=== PATIENT | female | born 1935 | race Caucasian/White ===

== ENCOUNTER 2017-09-16 20:38 | Emergency (ER) | payer MEDICARE ==
[2017-09-16] MEDS ORDERED: SODIUM CHLORIDE 0.9% 1,000 ML IV ONE (21:14)
[2017-09-16] MEDS ORDERED: MORPHINE SULFATE 2 MG/ML SYRINGE IVP PRN (21:16)
[2017-09-16 21:48] LABS: Basophils # (A) 0.1 k/uL (0-0.2); Basophils % (A) 1 %; Eosinophils # (A) 0.2 k/uL (0-0.7); Eosinophils % (A) 2 %; HCT 35.9 % (34.0-46.0); HGB 11.8 gm/dL (11.4-16.0); Lymphocytes # (A) 1.6 k/uL (1.0-4.8); Lymphocytes % (A) 13 %; MCH 28.8 pg (25.0-35.0); MCHC 32.8 g/dL (31.0-37.0); MCV 87.9 fL (80.0-100.0); Mean Platelet Volume 6.9; Monocytes # (A) 0.6 k/uL (0-1.0); Monocytes % (A) 5 %; Neutrophils # (A) 9.5 k/uL (1.3-7.7); Neutrophils % (A) 79 %; Platelet Count 320 k/uL (150-450); RBC 4.08 m/uL (3.80-5.40); RDW 14.5 % (11.5-15.5)
[2017-09-16 21:57] LABS: Albumin 3.8 g/dL (3.5-5.0); Calcium 9.1 mg/dL (8.4-10.2); Potassium 4.3 mmol/L (3.5-5.1); Total Bilirubin 0.9 mg/dL (0.2-1.3); Total Protein 6.2 g/dL (6.3-8.2)
[2017-09-16 22:03] LABS: Prothrombin Time 9.6 sec (9.0-12.0)
[2017-09-16 22:22] LABS: Partial Thromboplastin Time 21.2 sec (22.0-30.0)
--- NOTE | 2017-09-16 22:38 | CT ---
EXAMINATION TYPE: CT brain marlene salmon DATE OF EXAM: 09/16/2017 COMPARISON: HISTORY: fell this evening/pain posterior neck CT DLP: 1489.20 mGycm Automated exposure control for dose reduction was used. TECHNIQUE: CT scan of the head and cervical spine are performed without contrast. FINDINGS: There is cerebral cortical atrophy. There is no mass effect nor midline shift. There is n o sign of intracranial hemorrhage. The cervical vertebra have normal alignment. There is facet arthropathy in the mid and lower cervical spine. There is no significant disc space narrowing. Skull base is intact. There is no evidence for fracture. IMPRESSION: Mild cerebral atrophy. No acute intracranial abnormality. Mild spondylotic changes in the cervical spine. No fracture.
--- NOTE | 2017-09-16 22:39 | XR ---
EXAMINATION TYPE: XR pelvis AP view DATE OF EXAM: 09/16/2017 COMPARISON: NONE HISTORY: Pain TECHNIQUE: Single view FINDINGS: The pelvic ring is intact. Proximal femurs and hip joints are intact. Sacroiliac joints halie ear normal. IMPRESSION: Negative pelvis x-ray exam.
--- NOTE | 2017-09-16 22:40 | XR ---
EXAMINATION TYPE: XR Hip Complete RT DATE OF EXAM: 09/16/2017 COMPARISON: NONE HISTORY: Right hip pain TECHNIQUE: 2 views FINDINGS: I see no fracture nor dislocation. Proximal femur is intact. IMPRESSION: Negative right hip exam.
--- NOTE | 2017-09-16 22:41 | XR ---
EXAMINATION TYPE: XR knee limited RT DATE OF EXAM: 09/16/2017 COMPARISON: NONE HISTORY: Knee pain after falling TECHNIQUE: 2 views FINDINGS: There is comminuted supracondylar fracture of the distal femur. Fracture lines extend to th e knee prosthesis. There is 100% anterior displacement of the distal major fragment on the lateral vi ew. There is some overriding. IMPRESSION: Comminuted displaced supracondylar fracture of the right femur.
--- NOTE | 2017-09-16 22:47 | XR ---
EXAMINATION TYPE: XR ankle limited RT DATE OF EXAM: 09/16/2017 COMPARISON: NONE HISTORY: Ankle pain TECHNIQUE: 2 views FINDINGS: There is a small plantar calcaneal spur. I see no fracture nor dislocation. Ankle mortise i s anatomic. IMPRESSION: Mild calcaneal spurring. No fracture.
--- NOTE | 2017-09-16 22:58 | XR ---
EXAMINATION TYPE: XR chest 1V portable DATE OF EXAM: 09/16/2017 COMPARISON: EXAMINATION TYPE: XR chest 1V portable DATE OF EXAM: 09/16/2017 COMPARISON: NONE HISTORY: Chest pain TECHNIQUE: Single view FINDINGS: Supine view shows no heart failure nor confluent pneumonic infiltrate. Thoracic aorta is at heromatous. There is no pleural effusion. There is no pneumothorax. Bony thorax appears intact. IMPRESSION: No active cardiopulmonary disease.
[2017-09-16] MEDS ORDERED: fentaNYL (PF) 50 MCG/ML 2 ML AMP IVP STA (23:35)
--- NOTE | 2017-09-16 23:50 | ED ---
General Adult HPI - General Chief complaint: Fall Stated complaint: R leg fracture Source: patient Mode of arrival: EMS Limitations: no limitations - History of Present Illness Initial comments: Dictation was produced using [employer] dictation software. please excuse any grammatical, word or spelling errors. Chief Complaint: 82-year-old female with past medical history diabetes , hypertension, thyroid disorder presents with right lower extremity pain. History of Present Illness: She is a 82-year-old female past medical history of diabetes, hypertension, thyroid disorder presents with right knee pain. Patient states that 1 hour prior to arrival she was taking a step down when she slipped causing her to fall backwards and obliquely. Patient states she hit the back of her head. Denies any loss of consciousness. Patient states that she has pain mostly to her right knee area. Patient history of total knee replacement performed in [place] about 15 years ago. She is in town visiting friends. The ROS documented in this emergency department record has been reviewed and confirmed by me. Those systems with pertinent positive or negative responses have been documented in the HPI. All other systems are other negative and/or noncontributory. - Related Data Home Medications Medication Instructions Recorded Confirmed Aspirin [Adult Low Dose Aspirin EC] 81 mg PO DAILY 09/16/17 09/16/17 Cholecalciferol [Vitamin D3] 1,000 unit PO DAILY 09/16/17 09/16/17 Fluticasone/Salmeterol [Advair 1 inhalation PO BID 09/16/17 09/16/17 500-50 Diskus] Glimepiride [Amaryl] 4 mg PO AC-BRKFST 09/16/17 09/16/17 Levothyroxine Sodium [Synthroid] 112 mcg PO DAILY 09/16/17 09/16/17 Losartan Potassium [Cozaar] 50 mg PO DAILY 09/16/17 09/16/17 Montelukast [Singulair] 10 mg PO DAILY 09/16/17 09/16/17 Allergies Allergy/AdvReac Type Severity Reaction Status Date / Time No Known Allergies Allergy Verified 09/16/17 20:46 Review of Systems ROS Statement: Those systems with pertinent positive or pertinent negative responses have been documented in the HPI. ROS Other: All systems not noted in ROS Statement are negative. Past Medical History Past Medical History: Diabetes Mellitus, Hypertension, Thyroid Disorder History of Any Multi-Drug Resistant Organisms: None Reported Past Surgical History: Appendectomy, Cholecystectomy, Hysterectomy, Joint Replacement, Orthopedic Surgery Past Psychological History: No Psychological Hx Reported Smoking Status: Never smoker Past Alcohol Use History: None Reported Past Drug Use History: None Reported General Exam - General Exam Comments Initial Comments: PHYSICAL EXAM: General Impression: Alert and oriented x3, HEENT: Normocephalic atraumatic, extra-ocular movements intact, pupils equal and reactive to light bilaterally, mucous membranes moist. Cardiovascular: Heart regular rate and rhythm, S1&S2 audible, no murmurs, rubs or gallops Chest: Lungs clear to auscultation bilaterally, no rhonchi, no wheeze, no rales Abdomen: Bowel sounds present, abdomen soft, non-tender, non-distended, no organomegaly Musculoskeletal: Pulses present and equal in all extremities, no peripheral edema, shortened and externally rotated right lower extremity. Gross deformity of the suprapatellar area. Neurologically intact to both extremities equally. Motor: Power 5/5 bilaterally, no focal deficits noted Neurological: CN II-XII grossly intact, no focal motor or sensory deficits noted Skin: Intact with no visualized rashes Psych: Normal affect and mood Limitations: no limitations Course Vital Signs 09/16/17 09/16/17 09/16/17 20:41 21:39 22:44 Temperature 98.7 F Pulse Rate 50 L 55 L 58 L Respiratory 20 20 20 Rate Blood Pressure 207/84 198/79 178/78 O2 Sat by Pulse 94 L 96 95 Oximetry Medical Decision Making - Medical Decision Making ED course: She is a 82-year-old female presents after ground-level fall. Physical examination concerning for gross deformity of the right lower extremity. As upon arrival shows heart rate of 50, blood pressure 217/84 likely secondary to pain. Rest of vital signs unremarkable. Laboratory evaluation obtained. CBC is unremarkable except for some mild leukocytosis. INR is 1.0. Elevated renal markers with a creatinine of 1.3, BUNs 29, glucose of 180. Pelvis x-ray was obtained showing no acute processes. Hip x-ray obtained showing no acute processes. Right ankle x-rays obtained showing no acute processes. Chest x- ray shows no acute traumatic issues. Knee x-ray shows comminuted displaced supracondylar fracture of the right femur extending into the periprosthetic area. Computed tomography scan of the head and C-spine obtained showing no acute processes. Patient given multiple doses of IV analgesics. Discussed patient case with neck from orthopedic surgery recommends patient be transferred to trauma facility. Discussed patient case with Dr. Zamarripa from [facility] who is willing to accept the admission. Patient placed in a splint prior to transfer. - Lab Data Result diagrams: 09/16/17 21:30 09/16/17 21:30 Lab Results 09/16/17 09/16/17 09/16/17 Range/Units 21:30 21:30 21:30 WBC 12.0 H (3.8-10.6) k/uL RBC 4.08 (3.80-5.40) m/uL Hgb 11.8 (11.4-16.0) gm/dL Hct 35.9 (34.0-46.0) % MCV 87.9 (80.0-100.0) fL MCH 28.8 (25.0-35.0) pg MCHC 32.8 (31.0-37.0) g/dL RDW 14.5 (11.5-15.5) % Plt Count 320 (150-450) k/uL Neutrophils % 79 % Lymphocytes % 13 % Monocytes % 5 % Eosinophils % 2 % Basophils % 1 % Neutrophils # 9.5 H (1.3-7.7) k/uL Lymphocytes # 1.6 (1.0-4.8) k/uL Monocytes # 0.6 (0-1.0) k/uL Eosinophils # 0.2 (0-0.7) k/uL Basophils # 0.1 (0-0.2) k/uL PT 9.6 (9.0-12.0) sec INR 1.0 (<1.2) APTT 21.2 L (22.0-30.0) sec Sodium 138 (137-145) mmol/L Potassium 4.3 (3.5-5.1) mmol/L Chloride 106 (98-107) mmol/L Carbon Dioxide 24 (22-30) mmol/L Anion Gap 8 mmol/L BUN 29 H (7-17) mg/dL Creatinine 1.30 H (0.52-1.04) mg/dL Est GFR (CKD-EPI)AfAm 45 (>60 ml/min/1.73 sqM) Est GFR (CKD-EPI)NonAf 39 (>60 ml/min/1.73 sqM) Glucose 180 H (74-99) mg/dL Calcium 9.1 (8.4-10.2) mg/dL Total Bilirubin 0.9 (0.2-1.3) mg/dL AST 19 (14-36) U/L ALT 35 (9-52) U/L Alkaline Phosphatase 72 (38-126) U/L Total Protein 6.2 L (6.3-8.2) g/dL Albumin 3.8 (3.5-5.0) g/dL Disposition Clinical Impression: Fall, Femur fracture, right Disposition: OTHER INSTITUTION NOT DEFINED Condition: Fair Is patient prescribed a controlled substance at d/c from ED?: No Referrals: Nonstaff,Physician [Primary Care Provider] - 1-2 days Time of Disposition: 23:48 - Out of Hospital Transfer - Req. Specs Out of Hospital Transfer - Requested Specifics: Other Emergency Center (need trauma orthopedic surgery)
[2017-09-17 00:28] VITALS: BP 163/65; PULSE 87; RESP 18; TEMP 98.5
== END 2017-09-17 01:09 | disposition other institution (70) ==
LOC: EC 20:38
DX: S72.451A Displaced supracondylar fracture without intracondylar extension of lower end of right femur, initial encounter for closed fracture (principal); D72.829 Elevated white blood cell count, unspecified; R94.4 Abnormal results of kidney function studies; E11.9 Type 2 diabetes mellitus without complications; I10 Essential (primary) hypertension; E07.9 Disorder of thyroid, unspecified; Z79.82 Long term (current) use of aspirin; Z79.51 Long term (current) use of inhaled steroids; Z79.84 Long term (current) use of oral hypoglycemic drugs; Z79.899 Other long term (current) drug therapy; W10.9XXA Fall (on) (from) unspecified stairs and steps, initial encounter
CPT/HCPCS: 99285 ×2; 96374 ×2; 96375 ×2; 96361 ×5; 36415; 80053; 85025; 85610; 85730; 72170; 73502; 73560; 73600; 71045; 72125; 70450; J3010; J2270

== ENCOUNTER 2017-10-21 21:05 | Inpatient (IN) | payer MEDICARE ==
--- NOTE | 2017-10-21 21:53 | ED ---
General Adult HPI - General Stated complaint: abnormal labs Time Seen by Provider: 10/21/17 21:22 - History of Present Illness Initial comments: Rocío is an 82-year-old female who presents to the ED via EMS from a residential facility for evaluation of hypokalemia identified on outpatient labs. She reports that she was told her potassium was low, she was given a by mouth potassium supplement with dinner and subsequently transferred to the ER for further evaluation and management. Patient reports that she has no complaints, had routine blood work and was advised of these findings. Patient reports that she has been eating a normal diet of low car meals are provided to her at the retirement. She states that she did have some sweet potatoes with dinner last night but she never eats bananas because it causes her GI upset. She is not on any potassium supplementation or any diuretics. Patient also states that she's been experiencing some bilateral lower extremity edema, she is status post right femur fracture but this is been healing well and she has been participating in physical therapy and has been able to ambulate recently. Patient states that the edema in her legs is limiting her ability to participate in PT and she has been told by her caregivers at the rehab facility that she will be having an outpatient venous Doppler in the near future. Patient states that until 2 days ago she was receiving blood thinner shots in her abdomen, she is uncertain if it was heparin or Lovenox. She states that 2 days ago they changed from shots to aspirin daily. Patient has no history of DVT or PE in the past. She is not on any other anticoagulant or antiplatelet medications. She has no history of congestive heart failure to her knowledge. Review of her medical record reveals no diagnosis of congestive heart failure and no pharmacologic treatment for congestive heart failure. - Related Data Home Medications Medication Instructions Recorded Confirmed Aspirin [Adult Low Dose Aspirin EC] 81 mg PO DAILY 09/16/17 09/16/17 Cholecalciferol [Vitamin D3] 1,000 unit PO DAILY 09/16/17 09/16/17 Fluticasone/Salmeterol [Advair 1 inhalation PO BID 09/16/17 09/16/17 500-50 Diskus] Glimepiride [Amaryl] 4 mg PO AC-BRKFST 09/16/17 09/16/17 Levothyroxine Sodium [Synthroid] 112 mcg PO DAILY 09/16/17 09/16/17 Losartan Potassium [Cozaar] 50 mg PO DAILY 09/16/17 09/16/17 Montelukast [Singulair] 10 mg PO DAILY 09/16/17 09/16/17 Allergies Allergy/AdvReac Type Severity Reaction Status Date / Time No Known Allergies Allergy Verified 10/21/17 21:55 Review of Systems ROS Statement: Those systems with pertinent positive or pertinent negative responses have been documented in the HPI. ROS Other: All systems not noted in ROS Statement are negative. Past Medical History Past Medical History: Diabetes Mellitus, Hypertension, Thyroid Disorder History of Any Multi-Drug Resistant Organisms: None Reported Past Surgical History: Appendectomy, Cholecystectomy, Hysterectomy, Joint Replacement, Orthopedic Surgery Past Psychological History: No Psychological Hx Reported Smoking Status: Never smoker Past Alcohol Use History: None Reported Past Drug Use History: None Reported General Exam Limitations: no limitations General appearance: alert, in no apparent distress Head exam: Present: atraumatic, normocephalic Eye exam: Present: normal appearance, PERRL ENT exam: Present: normal exam, normal oropharynx Neck exam: Present: normal inspection Respiratory exam: Present: normal lung sounds bilaterally. Absent: respiratory distress Cardiovascular Exam: Present: regular rate, normal rhythm GI/Abdominal exam: Present: soft. Absent: distended Rectal exam: Present: deferred Extremities exam: Present: normal capillary refill, pedal edema Neurological exam: Present: alert, oriented X3 Psychiatric exam: Present: normal affect, normal mood Skin exam: Present: warm, dry, intact Course Vital Signs 10/21/17 10/21/17 21:20 23:01 Temperature 98.4 F 99.1 F Pulse Rate 74 76 Respiratory 18 16 Rate Blood Pressure 150/66 165/67 O2 Sat by Pulse 95 92 L Oximetry EKG Findings - EKG Comments: EKG Findings:: EKG obtained at 2158, rate is 78, rhythm is sinus, there is a normal axis, normal intervals, TN is 162, QRS is 156, QTC is 474, there is a right bundle-branch block. There are no previous EKGs for comparison. Medical Decision Making - Medical Decision Making The patient was seen and evaluated, history was obtained from patient and review of medical record No outpatient lab report was provided however handwritten note indicated that the patient's outpatient potassium and was 2.0 Patient was given PO potassium supplementation prior to transfer to ER Repeat labs and EKG were ordered In addition the patient has been minimally mobile since fracturing her femur and has developed bilateral lower extremity edema, venous Dopplers were ordered to evaluate edema EKG was evaluated, right bundle branch block, patient is uncertain if she has a history of this. There are no previous for comparison. Labs resulted with critical abnormalities including magnesium of 0.7 and potassium of 2.2. By mouth and IV replacements were ordered At this time the patient will acquire multiple hours of IV magnesium and potassium supplementation as well as lab repeats. The patient warrants admission to the hospital for monitoring and normalization of her labs. Patient is agreeable to this. Admission orders were placed. - Lab Data Result diagrams: 10/21/17 21:54 10/21/17 21:54 Lab Results 10/21/17 10/21/17 Range/Units 21:54 21:54 WBC 9.6 (3.8-10.6) k/uL RBC 3.50 L (3.80-5.40) m/uL Hgb 9.9 L D (11.4-16.0) gm/dL Hct 31.4 L (34.0-46.0) % MCV 89.6 (80.0-100.0) fL MCH 28.3 (25.0-35.0) pg MCHC 31.6 (31.0-37.0) g/dL RDW 15.3 (11.5-15.5) % Plt Count 436 (150-450) k/uL Neutrophils % 75 % Lymphocytes % 16 % Monocytes % 4 % Eosinophils % 4 % Basophils % 0 % Neutrophils # 7.2 (1.3-7.7) k/uL Lymphocytes # 1.5 (1.0-4.8) k/uL Monocytes # 0.4 (0-1.0) k/uL Eosinophils # 0.4 (0-0.7) k/uL Basophils # 0.0 (0-0.2) k/uL Hypochromasia Slight Sodium 140 (137-145) mmol/L Potassium 2.2 L* (3.5-5.1) mmol/L Chloride 99 (98-107) mmol/L Carbon Dioxide 35 H (22-30) mmol/L Anion Gap 6 mmol/L BUN 13 (7-17) mg/dL Creatinine 1.16 H (0.52-1.04) mg/dL Est GFR (CKD-EPI)AfAm 52 (>60 ml/min/1.73 sqM) Est GFR (CKD-EPI)NonAf 45 (>60 ml/min/1.73 sqM) Glucose 129 H (74-99) mg/dL Calcium 7.1 L (8.4-10.2) mg/dL Magnesium 0.7 L* (1.6-2.3) mg/dL Disposition Clinical Impression: Hypokalemia, Hypomagnesemia Disposition: ADMITTED IP TO THIS HOSP Decision Time: 22:42
[2017-10-21 22:08] LABS: Basophils % (A) 0 %; Eosinophils # (A) 0.4 k/uL (0-0.7); Eosinophils % (A) 4 %; HCT 31.4 % (34.0-46.0); Hypochromasia Slight; Lymphocytes # (A) 1.5 k/uL (1.0-4.8); Lymphocytes % (A) 16 %; MCH 28.3 pg (25.0-35.0); MCHC 31.6 g/dL (31.0-37.0); MCV 89.6 fL (80.0-100.0); Mean Platelet Volume 6.9; Monocytes # (A) 0.4 k/uL (0-1.0); Monocytes % (A) 4 %; Neutrophils # (A) 7.2 k/uL (1.3-7.7); Neutrophils % (A) 75 %; Platelet Count 436 k/uL (150-450); RDW 15.3 % (11.5-15.5); WBC 9.6 k/uL (3.8-10.6)
[2017-10-21 22:13] LABS: HGB 9.9 gm/dL (11.4-16.0)
[2017-10-21 22:17] LABS: Calcium 7.1 mg/dL (8.4-10.2)
[2017-10-21 22:21] LABS: Magnesium 0.7 mg/dL (1.6-2.3); Potassium 2.2 mmol/L (3.5-5.1)
[2017-10-21] MEDS ORDERED: POTASSIUM BICARBONATE/CIT AC 20 MEQ TABLET.EFF PO ONE (22:29)
[2017-10-21] MEDS: MAGNESIUM SULFATE-D5W PMX 1 GM in DEXTROSE/WATER 1 100ML.BAG IVPB SCH (22:32)
[2017-10-21] MEDS ORDERED: NALOXONE 0.4 MG/ML 1 ML VIAL IV PRN (22:42)
--- NOTE | 2017-10-21 23:07 | US ---
EXAMINATION TYPE: US venous doppler duplex LE DATE OF EXAM: 10/21/2017 10:50 PM COMPARISON: NONE CLINICAL HISTORY: edema. Edema surgery on right leg broke femur in August. SIDE PERFORMED: Bilateral TECHNIQUE: The lower extremity deep venous system is examined utilizing real time linear array sonog sadie with graded compression, doppler sonography and color-flow sonography. VESSELS IMAGED: External Iliac Vein (EIV) Common Femoral Vein Deep Femoral Vein Greater Saphenous Vein * Femoral Vein Popliteal Vein Small Saphenous Vein * Proximal Calf Veins (* superficial vessels) Right Leg: Negative for DVT Left Leg: Negative for DVT No evidence of DVT bilateral legs. IMPRESSION: No evidence of deep venous thrombosis in both legs.
[2017-10-21] MEDS ORDERED: ACETAMINOPHEN TAB 500 MG TAB PO PRN (23:17)
[2017-10-21] MEDS ORDERED: ALPRAZolam 0.25 MG TAB PO PRN (23:17)
[2017-10-21] MEDS ORDERED: hydrALAZINE HCL 20 MG/ML 1 ML VIAL IVP PRN (23:20)
[2017-10-21] MEDS: POTASSIUM CHLORIDE 10 MEQ in WATER FOR INJECTION 1 100ML.BAG IVPB SCH (23:36)
[2017-10-21] MEDS: SODIUM CHLORIDE 0.9% 1,000 ML IV SCH (23:36)
[2017-10-22] MEDS ORDERED: SYMBICORT 160-4.5 MCG INHALER INHALATION SCH (01:30)
[2017-10-22] MEDS: SYMBICORT 160-4.5 MCG INHALER INHALATION SCH ×3 (01:40→19:23)
[2017-10-22] MEDS: MAGNESIUM SULFATE-D5W PMX 1 GM in DEXTROSE/WATER 1 100ML.BAG IVPB SCH ×4 (02:02→15:14)
[2017-10-22] MEDS: POTASSIUM CHLORIDE 10 MEQ in WATER FOR INJECTION 1 100ML.BAG IVPB SCH ×3 (03:08→07:08)
[2017-10-22 03:46] LABS: Basophils % (A) 0 %; Eosinophils # (A) 0.5 k/uL (0-0.7); Eosinophils % (A) 5 %; HCT 30.5 % (34.0-46.0); HGB 9.8 gm/dL (11.4-16.0); Hypochromasia Slight; Lymphocytes # (A) 1.7 k/uL (1.0-4.8); Lymphocytes % (A) 18 %; MCH 28.9 pg (25.0-35.0); MCHC 32.1 g/dL (31.0-37.0); Monocytes # (A) 0.4 k/uL (0-1.0); Monocytes % (A) 5 %; Neutrophils # (A) 6.8 k/uL (1.3-7.7); Neutrophils % (A) 71 %; Platelet Count 433 k/uL (150-450); RBC 3.39 m/uL (3.80-5.40); RDW 15.5 % (11.5-15.5); WBC 9.6 k/uL (3.8-10.6)
[2017-10-22 04:27] LABS: Magnesium 1.3 mg/dL (1.6-2.3)
[2017-10-22 04:33] LABS: Potassium 2.1 mmol/L (3.5-5.1)
[2017-10-22] MEDS: LEVOTHYROXINE 112 MCG TAB PO SCH (06:46)
[2017-10-22] MEDS: SODIUM CHLORIDE 0.9% 1,000 ML IV SCH (07:10)
[2017-10-22] MEDS: LOSARTAN 50 MG TAB PO SCH (07:33)
[2017-10-22] MEDS: PANTOPRAZOLE 40 MG TABLET PO SCH (07:33)
[2017-10-22] MEDS: GLIMEPIRIDE 4 MG TAB PO SCH (07:33)
[2017-10-22] MEDS: ASPIRIN 81 MG PO SCH (07:33)
[2017-10-22] MEDS: HYDROcodone/APAP 5-325MG 1 EACH TAB PO PRN (07:37)
[2017-10-22 07:43] LABS: Glucose,Whole Blood 118 mg/dL (75-99)
[2017-10-22 10:43] LABS: Magnesium 1.1 mg/dL (1.6-2.3)
[2017-10-22 10:48] LABS: Potassium 2.1 mmol/L (3.5-5.1)
[2017-10-22 11:51] LABS: Glucose,Whole Blood 154 mg/dL (75-99)
[2017-10-22] MEDS: POTASSIUM CHLORIDE ER 20 MEQ TAB.ER PO SCH ×2 (11:53→14:46)
[2017-10-22] MEDS ORDERED: 0.9% NACL WITH KCL 40 MEQ/L 1,000 ML IV SCH (12:00)
[2017-10-22] MEDS: POTASSIUM CHLORIDE 20 MEQ in WATER FOR INJECTION 1 100ML.BAG IVPB SCH ×5 (12:23→23:06)
[2017-10-22] MEDS: 0.9% NACL WITH KCL 40 MEQ/L 1,000 ML IV SCH (14:36)
--- NOTE | 2017-10-22 14:53 | P.HPIM ---
History of Present Illness 82-year-old female sent in from jail after she is found to have severely low potassium and low magnesium. 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 Patient is severely hypomagnesemic and hypokalemic patient had 4 episodes of diarrhea today C. diff testing is being obtained this is lites are being supplemented patient is on IV fluids with potassium supplementation as well. Patient's creatinine is 1.1 now down to 1 patient denied any fever chills patient had nausea vomiting. Facility has recent multiple oral virus infections but patient denied any flulike symptoms fever. Review of Systems REVIEW OF SYSTEMS: CONSTITUTIONAL: No fever, no malaise, no fatigue. HEENT: No recent visual problems or hearing problems. Denied any sore throat. CARDIOVASCULAR: No chest pain, orthopnea, PND, no palpitations, no syncope. PULMONARY: No shortness of breath, no cough, no hemoptysis. GASTROINTESTINAL: no nausea, no vomiting, no abdominal pain. Normoactive bowel sounds. NEUROLOGICAL: No headaches, no weakness, no numbness. HEMATOLOGICAL: Denies any bleeding or petechiae. GENITOURINARY: Denies any burning micturition, frequency, or urgency. MUSCULOSKELETAL/RHEUMATOLOGICAL: Denies any joint pain, swelling, or any muscle pain. ENDOCRINE: Denies any polyuria or polydipsia. The rest of the 14-point review of systems is negative. Past Medical History Past Medical History: Diabetes Mellitus, Hypertension, Thyroid Disorder History of Any Multi-Drug Resistant Organisms: None Reported Past Surgical History: Appendectomy, Cholecystectomy, Hysterectomy, Joint Replacement, Orthopedic Surgery Additional Past Surgical History / Comment(s): 2 knees done, lap band Past Anesthesia/Blood Transfusion Reactions: No Reported Reaction Past Psychological History: No Psychological Hx Reported Smoking Status: Never smoker Past Alcohol Use History: None Reported Past Drug Use History: None Reported - Past Family History Mother Family Medical History: Diabetes Mellitus Additional Family Medical History / Comment(s): of COPD, had a stroke Father Family Medical History: Diabetes Mellitus Medications and Allergies Home Medications Medication Instructions Recorded Confirmed Type Aspirin [Adult Low Dose Aspirin EC] 81 mg PO DAILY 09/16/17 10/22/17 History Levothyroxine Sodium [Synthroid] 112 mcg PO DAILY 09/16/17 10/22/17 History Losartan Potassium [Cozaar] 50 mg PO DAILY 09/16/17 10/22/17 History Montelukast [Singulair] 10 mg PO HS 09/16/17 10/22/17 History Antifungal Powder 1 applic TOPICAL BID 10/22/17 10/22/17 History Calcium Carbonate/Vitamin D3 1 tab PO BID@1100,2100 10/22/17 10/22/17 History [Calcium 500-Vit D3 200 Tablet] Dimethicone/Zinc Oxide [Inzo Zinc 1 applic TOPICAL BID 10/22/17 10/22/17 History Oxide Barrier Cream] Ferrous Sulfate [Feosol] 325 mg PO BID 10/22/17 10/22/17 History Fluticasone/Vilanterol [Breo 1 puff INHALATION RT-DAILY 10/22/17 10/22/17 History Ellipta 200-25 Mcg INH] Glimepiride [Amaryl] 2 mg PO AC-BRKFST 10/22/17 10/22/17 History Hydrocodone/Acetaminophen [[place] 1 tab PO Q4HR PRN 10/22/17 10/22/17 History 7.5-325] Lactobacillus Acidophilus 1 tab PO DAILY@1200 10/22/17 10/22/17 History [Acidophilus] Loperamide [Imodium] 4 mg PO BID PRN MDD 4 tabs daily 10/22/17 10/22/17 History Allergies Allergy/AdvReac Type Severity Reaction Status Date / Time No Known Allergies Allergy Verified 10/22/17 09:28 Physical Exam Vitals: Vital Signs Temp Pulse Pulse Resp BP BP Pulse Ox 10/22/17 07:19 17 10/22/17 07:18 97.9 F 75 17 147/66 97 10/21/17 23:43 98.9 F 76 16 160/67 95 10/21/17 23:01 99.1 F 76 16 165/67 92 L 10/21/17 21:20 98.4 F 74 18 150/66 95 Intake and Output 10/21/17 10/22/17 10/22/17 22:59 06:59 14:59 Other: Voiding Method Bedpan # Voids 2 # Bowel Movements 2 Weight 95.254 kg PHYSICAL EXAMINATION: GENERAL: The patient is alert and oriented x3, not in any acute distress. Well developed, well nourished. HEENT: Pupils are round and equally reacting to light. EOMI. No scleral icterus. No conjunctival pallor. Normocephalic, atraumatic. No pharyngeal erythema. No thyromegaly. CARDIOVASCULAR: S1 and S2 present. No murmurs, rubs, or gallops. PULMONARY: Chest is clear to auscultation, no wheezing or crackles. ABDOMEN: Soft, nontender, nondistended, normoactive bowel sounds. No palpable organomegaly. MUSCULOSKELETAL: No joint swelling or deformity. EXTREMITIES: No cyanosis, clubbing, or pedal edema. NEUROLOGICAL: Gross neurological examination did not reveal any focal deficits. SKIN: No rashes. Results CBC & Chem 7: 10/22/17 03:34 10/22/17 10:05 Labs: Abnormal Lab Results - Last 24 Hours (Table) 10/21/17 10/21/17 10/22/17 Range/Units 21:54 21:54 03:34 RBC 3.50 L 3.39 L (3.80-5.40) m/uL Hgb 9.9 L D 9.8 L (11.4-16.0) gm/dL Hct 31.4 L 30.5 L (34.0-46.0) % Potassium 2.2 L* (3.5-5.1) mmol/L Carbon Dioxide 35 H (22-30) mmol/L Creatinine 1.16 H (0.52-1.04) mg/dL Glucose 129 H (74-99) mg/dL POC Glucose (mg/dL) (75-99) mg/dL Calcium 7.1 L (8.4-10.2) mg/dL Magnesium 0.7 L* (1.6-2.3) mg/dL 10/22/17 10/22/17 10/22/17 Range/Units 03:34 06:48 10:05 RBC (3.80-5.40) m/uL Hgb (11.4-16.0) gm/dL Hct (34.0-46.0) % Potassium 2.1 L* 2.1 L* (3.5-5.1) mmol/L Carbon Dioxide 34 H (22-30) mmol/L Creatinine (0.52-1.04) mg/dL Glucose 112 H (74-99) mg/dL POC Glucose (mg/dL) 118 H (75-99) mg/dL Calcium 7.0 L (8.4-10.2) mg/dL Magnesium 1.3 L 1.1 L (1.6-2.3) mg/dL 10/22/17 Range/Units 11:47 RBC (3.80-5.40) m/uL Hgb (11.4-16.0) gm/dL Hct (34.0-46.0) % Potassium (3.5-5.1) mmol/L Carbon Dioxide (22-30) mmol/L Creatinine (0.52-1.04) mg/dL Glucose (74-99) mg/dL POC Glucose (mg/dL) 154 H (75-99) mg/dL Calcium (8.4-10.2) mg/dL Magnesium (1.6-2.3) mg/dL Thrombosis Risk Factor Assmnt - Choose All That Apply Any of the Below Risk Factors Present?: No Other Risk Factors: Yes Each Risk Factor Represents 3 Points: Age 75 years or older Thrombosis Risk Factor Assessment Total Risk Factor Score: 3 Thrombosis Risk Factor Assessment Level: Moderate Risk Assessment and Plan Plan: -Hypokalemia: Probably secondary to diarrhea along with hypomagnesemia both magnesium and potassium will be supplemented, patient will be on high potassium diet upon discharge -Hypomagnesemia: Probably to to decrease absorption because of her bowel resection lost about 2 m of bowel which appears to be small bowel. Magnesium will be supplemented as well -Diarrhea chronic: May require antidiarrheals will do that 1 C. diff is ruled out. -Hypothyroidism and 10-hypertension -Chronic mild intermittent asthma without any acute exacerbation For above-mentioned chronic medical problems patient will be resumed and continued on home medications. -
[2017-10-22 16:20] LABS: Magnesium 1.8 mg/dL (1.6-2.3)
[2017-10-22 16:34] LABS: Potassium 2.5 mmol/L (3.5-5.1)
[2017-10-22] MEDS ORDERED: POTASSIUM CHLORIDE ER 20 MEQ TAB.ER PO STA (17:01)
[2017-10-22 17:36] LABS: Glucose,Whole Blood 179 mg/dL (75-99)
[2017-10-22 22:03] LABS: Glucose,Whole Blood 158 mg/dL (75-99)
[2017-10-23] MEDS: LEVOTHYROXINE 112 MCG TAB PO SCH (05:36)
[2017-10-23] MEDS: 0.9% NACL WITH KCL 40 MEQ/L 1,000 ML IV SCH ×2 (05:38→13:34)
[2017-10-23] MEDS: HYDROcodone/APAP 5-325MG 1 EACH TAB PO PRN (05:39)
[2017-10-23 07:09] LABS: Glucose,Whole Blood 141 mg/dL (75-99)
[2017-10-23] MEDS: PANTOPRAZOLE 40 MG TABLET PO SCH (07:56)
[2017-10-23] MEDS: ASPIRIN 81 MG PO SCH (07:56)
[2017-10-23] MEDS: LOSARTAN 50 MG TAB PO SCH (07:56)
[2017-10-23] MEDS: GLIMEPIRIDE 4 MG TAB PO SCH (07:56)
[2017-10-23] MEDS: SYMBICORT 160-4.5 MCG INHALER INHALATION SCH (08:02)
[2017-10-23 08:59] LABS: Basophils % (A) 1 %; Eosinophils # (A) 0.5 k/uL (0-0.7); Eosinophils % (A) 6 %; HCT 34.5 % (34.0-46.0); HGB 10.3 gm/dL (11.4-16.0); Hypochromasia Moderate; Lymphocytes # (A) 1.5 k/uL (1.0-4.8); Lymphocytes % (A) 16 %; MCH 27.4 pg (25.0-35.0); MCHC 29.9 g/dL (31.0-37.0); MCV 91.6 fL (80.0-100.0); Mean Platelet Volume 6.4; Monocytes # (A) 0.3 k/uL (0-1.0); Monocytes % (A) 4 %; Neutrophils # (A) 6.9 k/uL (1.3-7.7); Neutrophils % (A) 74 %; Platelet Count 488 k/uL (150-450); RBC 3.76 m/uL (3.80-5.40); RDW 15.3 % (11.5-15.5); WBC 9.3 k/uL (3.8-10.6)
[2017-10-23 09:11] LABS: Calcium 7.1 mg/dL (8.4-10.2); Magnesium 1.7 mg/dL (1.6-2.3); Potassium 3.2 mmol/L (3.5-5.1); Total Bilirubin 0.9 mg/dL (0.2-1.3); Total Protein 5.7 g/dL (6.3-8.2)
[2017-10-23] MEDS ORDERED: MAGNESIUM SULFATE-D5W PMX 1 GM in DEXTROSE/WATER 1 100ML.BAG IVPB ONE (10:30)
[2017-10-23] MEDS ORDERED: POTASSIUM CHLORIDE ER 20 MEQ TAB.ER PO SCH (12:00)
[2017-10-23 12:04] LABS: Glucose,Whole Blood 149 mg/dL (75-99)
[2017-10-23] MEDS ORDERED: POTASSIUM CHLORIDE ER 20 MEQ TAB.ER PO STA (13:20)
[2017-10-23 14:56] VITALS: PULSE 86; RESP 16; TEMP 98.3
--- NOTE | 2017-10-23 15:38 | P.DS ---
Providers Date of admission: 10/21/17 22:44 Attending physician: Komal Vizcarra Primary care physician: Ned Ana Rosa [facility] Course: 82-year-old female sent in from skilled nursing after she is found to have severely low potassium and low magnesium. 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 Patient is severely hypomagnesemic and hypokalemic patient had 4 episodes of diarrhea today C. diff testing is being obtained this is lites are being supplemented patient is on IV fluids with potassium supplementation as well. Patient's creatinine is 1.1 now down to 1 patient denied any fever chills patient had nausea vomiting. Facility has recent multiple oral virus infections but patient denied any flulike symptoms fever. 10/23/2017 Patient's electrolytes improved hypomagnesemia is probably related to her bowel surgery and hypokalemia secondary to diarrhea and hypomagnesemia and patient will be discharged on oral magnesium and potassium supplementation and daily basis will be discharged today. C. diff is negative. PHYSICAL EXAMINATION: GENERAL: The patient is alert and oriented x3, not in any acute distress. Well developed, well nourished. HEENT: Pupils are round and equally reacting to light. EOMI. No scleral icterus. No conjunctival pallor. Normocephalic, atraumatic. No pharyngeal erythema. No thyromegaly. CARDIOVASCULAR: S1 and S2 present. No murmurs, rubs, or gallops. PULMONARY: Chest is clear to auscultation, no wheezing or crackles. ABDOMEN: Soft, nontender, nondistended, normoactive bowel sounds. No palpable organomegaly. MUSCULOSKELETAL: No joint swelling or deformity. EXTREMITIES: No cyanosis, clubbing, or pedal edema. NEUROLOGICAL: Gross neurological examination did not reveal any focal deficits. SKIN: No rashes. 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 Magnesium will be supplemented as well -Diarrhea chronic: 1 C. diff ruled out. -Hypothyroidism -hypertension -Chronic mild intermittent asthma without any acute exacerbation Plan - Discharge Summary Discharge Rx Participant: No New Discharge Prescriptions: New Magnesium Oxide 400 mg PO BID #60 tablet Potassium Chloride ER [K-Dur 20] 20 meq PO BID #60 tab Continue Levothyroxine Sodium [Synthroid] 112 mcg PO DAILY Losartan Potassium [Cozaar] 50 mg PO DAILY Aspirin [Adult Low Dose Aspirin EC] 81 mg PO DAILY Montelukast [Singulair] 10 mg PO HS Calcium Carbonate/Vitamin D3 [Calcium 500-Vit D3 200 Tablet] 1 tab PO BID@ 1100,2100 Ferrous Sulfate [Feosol] 325 mg PO BID Fluticasone/Vilanterol [Breo Ellipta 200-25 Mcg INH] 1 puff INHALATION RT- DAILY Glimepiride [Amaryl] 2 mg PO AC-BRKFST Lactobacillus Acidophilus [Acidophilus] 1 tab PO DAILY@1200 Antifungal Powder 1 applic TOPICAL BID Loperamide [Imodium] 4 mg PO BID PRN MDD 4 tabs daily PRN Reason: Diarrhea Dimethicone/Zinc Oxide [Inzo Zinc Oxide Barrier Cream] 1 applic TOPICAL BID Hydrocodone/Acetaminophen [[place] 7.5-325] 1 tab PO Q4HR PRN #10 tablet PRN Reason: Pain Discharge Medication List Aspirin [Adult Low Dose Aspirin EC] 81 mg PO DAILY 09/16/17 [History] Levothyroxine Sodium [Synthroid] 112 mcg PO DAILY 09/16/17 [History] Losartan Potassium [Cozaar] 50 mg PO DAILY 09/16/17 [History] Montelukast [Singulair] 10 mg PO HS 09/16/17 [History] Antifungal Powder 1 applic TOPICAL BID 10/22/17 [History] Calcium Carbonate/Vitamin D3 [Calcium 500-Vit D3 200 Tablet] 1 tab PO BID@1100, 2100 10/22/17 [History] Dimethicone/Zinc Oxide [Inzo Zinc Oxide Barrier Cream] 1 applic TOPICAL BID [History] Ferrous Sulfate [Feosol] 325 mg PO BID 10/22/17 [History] Fluticasone/Vilanterol [Breo Ellipta 200-25 Mcg INH] 1 puff INHALATION RT-DAILY 10/22/17 [History] Glimepiride [Amaryl] 2 mg PO AC-BRKFST 10/22/17 [History] Lactobacillus Acidophilus [Acidophilus] 1 tab PO DAILY@1200 10/22/17 [History] Loperamide [Imodium] 4 mg PO BID PRN MDD 4 tabs daily 10/22/17 [History] Hydrocodone/Acetaminophen [[place] 7.5-325] 1 tab PO Q4HR PRN #10 tablet 10/23/17 [Rx] Magnesium Oxide 400 mg PO BID #60 tablet 10/23/17 [Rx] Potassium Chloride ER [K-Dur 20] 20 meq PO BID #60 tab 10/23/17 [Rx] Follow up Appointment(s)/Referral(s): Ned Oseguera MD [Primary Care Provider] - 1-2 Days Ambulatory/Diagnostic Orders: Basic Metabolic Panel [LAB.AMB] Time Frame: 3 Days, Location: None Selected Magnesium [LAB.AMB] Time Frame: 3 Days, Location: None Selected Activity/Diet/Wound Care/Special Instructions: consistent carb activity as tolerated dnr @ mph monitor potassium and magnesium levels closely Discharge Disposition: TRANSFER TO SNF/ECF
[2017-10-23 15:42] VITALS: BP 153/75
== END 2017-10-23 16:40 | DRG 641 ==
LOC: EC 21:05 → 3SUR 22:44
PROVIDERS: ADMIT Hospitalist; ATTEND Hospitalist
DX: E87.6 Hypokalemia (principal); E83.42 Hypomagnesemia; E11.9 Type 2 diabetes mellitus without complications; I45.10 Unspecified right bundle-branch block; K52.9 Noninfective gastroenteritis and colitis, unspecified; E03.9 Hypothyroidism, unspecified; I10 Essential (primary) hypertension; J45.20 Mild intermittent asthma, uncomplicated; Z87.81 Personal history of (healed) traumatic fracture; Z79.82 Long term (current) use of aspirin; Z79.84 Long term (current) use of oral hypoglycemic drugs; Z79.890 Hormone replacement therapy; Z79.899 Other long term (current) drug therapy; Z90.49 Acquired absence of other specified parts of digestive tract; Z90.710 Acquired absence of both cervix and uterus; Z98.84 Bariatric surgery status; Z83.3 Family history of diabetes mellitus; Z82.5 Family history of asthma and other chronic lower respiratory diseases; Z82.3 Family history of stroke
CPT/HCPCS: 36415; 80048; 80053; 83735; 84132; 85025; 87324; 93005; 93970; 94640; 96365; 99285